=== PATIENT | male | born 1950 | race Caucasian/White ===

== ENCOUNTER → 2020-09-28 14:52 | Outpatient (CLI) | payer MEDICARE, SELFPAY ==
[2020-09-28 15:26] LABS: Hemoglobin A1C% w Est Avg Glu 6.6 % (4.0-6.0)
[2020-09-28 15:37] LABS: Alanine Aminotransferase 25 IU/L (<50); Albumin 4.2 g/dL (3.5-5.0); Albumin Globulin Ratio 1.4 (1.0-2.8); Alkaline Phosphatase 59 U/L (38-126); Aspartate Aminotransferase 27 IU/L (17-59); BUN Creatinine Ratio 16.2 (6-22); Bilirubin Total 0.4 mg/dL (0.2-1.3); Blood Urea Nitrogen 25 mg/dL (9-20); Calcium 9.9 mg/dL (8.4-10.2); Carbon Dioxide 28 mmol/L (22-32); Chloride 100 mmol/L (98-107); Cholesterol 223 mg/dL (140-199); Estimated Glomerular Filt Rate 44.8 mL/min (>60); Globulin 3.1 g/dL (1.7-4.1); Glucose 131 mg/dL (80-110); HDL Cholesterol 36 mg/dL (40-60); HEMOLYSIS < 15 (0-50); Potassium 4.5 mmol/L (3.4-5.1); Sodium 135 mmol/L (137-145); Total Protein 7.3 g/dL (6.3-8.2)
[2020-09-28 15:45] LABS: Triglycerides 626 mg/dL (35-150)
[2020-09-28 16:03] LABS: Prostate Specific Antigen 0.567 ng/mL (0.10-4.00)
[2020-09-28 16:47] LABS: TSH w/ Reflex to FT4 1.14 uIU/mL (0.47-4.68)
== END ==
PROVIDERS: PCP Family Medicine; Referring Provider Family Medicine; Visit Provider Family Medicine
DX: R73.9 Hyperglycemia, unspecified (principal); I10 Essential (primary) hypertension; N40.0 Benign prostatic hyperplasia without lower urinary tract symptoms; R53.83 Other fatigue
CPT/HCPCS: 36415; 80053; 80061; 83036; 84153; 84443

== ENCOUNTER → 2023-03-20 17:36 | Outpatient (CLI) | payer MEDICARE, SELFPAY ==
[2023-03-20 18:04] LABS: Add Manual Diff / Slide Review NO; Basophils Absolute Auto 0 /uL (0-100); Basophils Percent Auto 0.3 % (0-2); Eosinophils Absolute Auto 200 /uL (0-450); Eosinophils Percent Auto 2.9 % (2-4); Hematocrit 39.3 % (41-53); Hemoglobin 13.2 g/dL (13.5-17.5); Lymphocytes Absolute Auto 1500 /uL (1100-4500); Lymphocytes Percent Auto 20.9 % (25-40); Mean Corpuscular HGB Conc 33.5 % (30-36); Mean Corpuscular Hemoglobin 31.3 PG (26-34); Mean Corpuscular Volume 93.3 fL (80-100); Monocytes Absolute Auto 800 /uL (0-900); Monocytes Percent Auto 10.5 % (3-14); Neutrophils Absolute Auto 4700 /uL (1500-7000); Neutrophils Percent Auto 65.4 % (50-75); Platelet Count 247 X10^3/uL (150-400); Red Blood Cell Count 4.21 X10^6/uL (4.5-5.9); Red Cell Distribution Width 13.2 % (11.6-14.8); White Blood Cell Count 7.2 X10^3/uL (4.5-11.0)
[2023-03-20 18:14] LABS: Hemoglobin A1C% w Est Avg Glu 6.8 % (4.0-6.0)
[2023-03-20 18:22] LABS: Alanine Aminotransferase 35 IU/L (<50); Albumin 3.8 g/dL (3.5-5.0); Albumin Globulin Ratio 1.2 (1.0-2.8); Alkaline Phosphatase 63 U/L (38-126); Aspartate Aminotransferase 24 IU/L (17-59); BUN Creatinine Ratio 13.2 (6-22); Bilirubin Total 0.2 mg/dL (0.2-1.3); Blood Urea Nitrogen 35 mg/dL (9-20); Calcium 9.4 mg/dL (8.4-10.2); Carbon Dioxide 24 mmol/L (22-32); Chloride 105 mmol/L (98-107); Estimated Glomerular Filt Rate 25 mL/min (>60); Globulin 3.3 g/dL (1.7-4.1); Glucose 139 mg/dL (80-110); HEMOLYSIS < 15 (0-50); Potassium 4.8 mmol/L (3.4-5.1); Sodium 138 mmol/L (137-145); Total Protein 7.1 g/dL (6.3-8.2)
[2023-03-20 18:52] LABS: TSH w/ Reflex to FT4 0.88 uIU/mL (0.47-4.68)
== END ==
PROVIDERS: PCP Family Medicine; Referring Provider Family Medicine; Visit Provider Family Medicine
DX: E78.5 Hyperlipidemia, unspecified (principal); R73.9 Hyperglycemia, unspecified; N40.0 Benign prostatic hyperplasia without lower urinary tract symptoms; I10 Essential (primary) hypertension; M54.2 Cervicalgia; N28.9 Disorder of kidney and ureter, unspecified
CPT/HCPCS: 36415; 80053; 83036; 84443; 85025

== ENCOUNTER 2024-05-31 11:40 | Emergency (ER) | payer MEDICARE, SELFPAY ==
[2024-05-31] VITALS (14 sets, daily range): BP systolic 156–227; BP diastolic 72–115; PULSE 81–114; RESP 18–45; TEMP 36.7; O2SAT 93–96; BMI 37.5
--- NOTE | 2024-05-31 11:57 | DI.RAD.S_ITS ---
PROCEDURE: XR CHEST 1V INDICATIONS: Shortness of breath TECHNIQUE: One view of the chest was acquired. COMPARISON: None. FINDINGS: Surgical changes and devices: None. Lungs and pleura: Prominent interstitial markings in the mid and lower lung javier. Likely small bilateral pleural effusions. Mediastinum: Mediastinal contours appear normal. Heart size is normal. Bones and chest wall: No suspicious bony lesions. Overlying soft tissues appear unremarkable. IMPRESSION: Prominent interstitial markings in the mid and lower lung jvaier and possible small pleural effusions, correlate for volume overload. Dictated by: Sherwin Hester M.D. on 05/31/2024 at 12:13 Approved by: Sherwin Hester M.D. on 05/31/2024 at 12:17
--- NOTE | 2024-05-31 12:10 | ED_ITS ---
HPI - SOB/Dyspnea General Chief Complaint: Shortness of Breath/Dyspnea Stated Complaint: Shortness of breath Time Seen by Provider: 05/31/24 11:59 Source: patient Mode of arrival: Wheelchair Limitations: no limitations History of Present Illness HPI Narrative: 74-year-old male with 2 months duration of shortness of breath, increased the last week or 2, lower extremity edema chronic, recalls taking water pill medication 1 month ago that was short course, not chronic, not continue, no intolerance. No recent cough fevers or chills. No chest pain. Denies history of known kidney problems. Denies history of known liver problems. Denies history of known congestive heart failure problems. He has history of diabetes and hypertension Related Data Home Medications Medication Instructions Recorded Confirmed lisinopril 20 mg tablet 10 mg PO QID 03/20/23 Previous Rx's Medication Instructions Recorded amlodipine 2.5 mg tablet 2.5 mg PO BEDTIME #90 tabs 03/20/23 empagliflozin 25 mg tablet 25 mg PO DAILY #90 tabs 03/20/23 (Jardiance) hydroxyzine HCl 25 mg tablet 25 mg PO BID PRN anxiety #30 tabs 03/20/23 lisinopril 20 mg tablet 20 mg PO BID #180 tabs 03/20/23 lorazepam 0.5 mg tablet 0.5 mg PO BID PRN anxiety #30 tabs 12/12/23 Allergies Allergy/AdvReac Type Severity Reaction Status Date / Time gluten Allergy Mild congestion Verified 03/20/23 16:43 milk Allergy Mild congestion Verified 03/20/23 16:43 Review of Systems Review of Systems Narrative: See HPI Patient History Medical History (Updated 05/31/24 @ 16:43 by Maximo Moralez MD) Type 2 diabetes mellitus Erectile dysfunction Kidney disease Neck pain Hyperlipidemia BPH (benign prostatic hyperplasia) Fatigue Hyperglycemia Hypertension Social History Smoking Status: Former smoker (Quit 2009 ) Tobacco: How many years used: 10 alcohol intake: current substance use type: does not use Smoking Status: Former smoker (Quit 2009 ) alcohol intake frequency: other Substance Use Type: does not use Exam Narrative Exam Narrative: GENERAL: Well-developed patient, in mild distress. HEAD: Atraumatic. Normocephalic. EYES: Pupils equal round and reactive. Extraocular motions intact. No scleral icterus. No injection or drainage. ENT: Nose without bleeding, purulent drainage. Throat without erythema, tonsillar hypertrophy or exudate. Airway patent. NECK: Trachea midline. Non tender CARDIOVASCULAR: Regular rate and rhythm without murmurs, gallops, or rubs. RESPIRATORY: Clear to auscultation. Breath sounds equal bilaterally. No wheezes, rales, or rhonchi. GASTROINTESTINAL: Abdomen soft, obese/protuberant, non-tender, nondistended. EXTREMITIES: Bilateral lower extremity edema to ankles, 1+ scant, good DP pulses and cap refill toes BACK: Nontender without deformity or crepitance. No flank tenderness. NEURO: AOx3. Motor functions grossly nonfocal SKIN: No rash or erythema of visible areas Initial Vital Signs Initial Vital Signs: Vital Signs Temperature 98.0 F 05/31/24 11:51 Pulse Rate 114 H 05/31/24 11:51 Respiratory Rate 45 H 05/31/24 11:51 Blood Pressure 227/115 H 05/31/24 11:51 Pulse Oximetry 93 05/31/24 11:51 Oxygen Delivery Method Nasal Cannula 05/31/24 11:51 Oxygen Flow Rate 2 05/31/24 11:51 Course Orders Ordered: ED Orders 05/31/24 11:57 XR chest 1V Stat EKG-12 Lead Stat Measure peak expiratory flow ONCE RT Consult Eval and Treat NOW 05/31/24 12:35 Complete Blood Count AUTO DIFF Stat Comprehensive Metabolic Panel Stat Lactate (Lactic Acid) Stat NT-proBNP (BNP-Adult 18+) Stat Prothrombin Time INR Stat Troponin I Stat 05/31/24 12:45 Blood Culture Stat 05/31/24 13:20 CT chest abd pel wo con Stat Discontinued Medications Albuterol (Albuterol 2.5 Mg/3 Ml Neb (Adult)) 2.5 mg INH NOW ONE Stop: 05/31/24 13:24 Last Admin: 05/31/24 13:58 Dose: 2.5 mg Documented By: IGOR Doxycycline Hyclate (Doxycycline Hyclate 100 Mg Tablet) 100 mg PO NOW ONE Stop: 05/31/24 12:10 Last Admin: 05/31/24 13:02 Dose: 100 mg Documented By: YUE Ceftriaxone Sodium 1,000 mg/ (Sodium Chloride) 100 mls @ 200 mls/hr IV NOW ONE Stop: 05/31/24 12:10 Last Infusion: 05/31/24 14:12 Dose: Infused Documented By: Infusion: 05/31/24 13:30 Dose: 200 mls/hr Documented By: Infusion: 05/31/24 13:10 Dose: 0 mls/hr Documented By: Admin: 05/31/24 13:00 Dose: 200 mls/hr Documented By: YUE Labetalol HCl (Labetalol 20 Mg/4 Ml Syringe) 10 mg IV NOW ONE Stop: 05/31/24 12:09 Last Admin: 05/31/24 13:30 Dose: 10 mg Documented By: YUE Vital Signs Vital signs: Vital Signs - 8 hr 05/31/24 13:05 05/31/24 13:30 05/31/24 13:30 Pulse Rate 95 H 92 H 92 H Respiratory Rate 30 H 25 H Blood Pressure 179/102 H Pulse Oximetry 95 94 Oxygen Delivery Method Room Air 05/31/24 13:30 05/31/24 13:53 05/31/24 13:53 Pulse Rate 85 Respiratory Rate 25 H Blood Pressure 188/109 H 212/102 H Pulse Oximetry 94 Oxygen Delivery Method Room Air 05/31/24 13:58 05/31/24 14:00 05/31/24 14:00 Pulse Rate 87 85 Respiratory Rate 18 25 H Blood Pressure 184/102 H Pulse Oximetry 95 95 Oxygen Delivery Method Room Air 05/31/24 14:30 05/31/24 14:31 05/31/24 14:31 Pulse Rate 84 84 Respiratory Rate 28 H 23 Blood Pressure 180/101 H Pulse Oximetry 96 95 Oxygen Delivery Method 05/31/24 14:52 05/31/24 15:00 05/31/24 15:01 Pulse Rate 83 81 81 Respiratory Rate 26 H 22 Blood Pressure 180/101 H Pulse Oximetry 95 95 Oxygen Delivery Method Room Air 05/31/24 15:01 05/31/24 15:30 05/31/24 16:00 Pulse Rate 83 Respiratory Rate 25 H Blood Pressure 163/89 H 160/72 H Pulse Oximetry 94 94 Oxygen Delivery Method Room Air 05/31/24 17:08 Pulse Rate 84 Respiratory Rate 23 Blood Pressure 156/72 H Pulse Oximetry 94 Oxygen Delivery Method Room Air MDM - SOB/Dyspnea Lab Data Attestation: I reviewed the patient's lab results. Lab results narrative: White blood cell count 9100, hemoglobin 30.7, platelets adequate. Potassium 5.0, sodium 138, BUN 36 with creatinine 3.95, glucose 131. Previous creatinine 2.66 noted March 2023, previous creatinine 1.5 on August 2020 noted 05/31/24 12:35 05/31/24 12:35 Labs: Lab Results 05/31/24 Range/Units 12:35 WBC 9.1 (4.5-11.0) X10^3/uL RBC 4.44 L (4.5-5.9) X10^6/uL Hgb 13.7 (13.5-17.5) g/dL Hct 41.2 (41-53) % MCV 92.9 (80-100) fL MCH 30.8 (26-34) PG MCHC 33.2 (30-36) % RDW 14.0 (11.6-14.8) % Plt Count 300 (150-400) X10^3/uL Neut % (Auto) 75.3 H (50-75) % Lymph % (Auto) 13.1 L (25-40) % [place] % (Auto) 8.7 (3-14) % Eos % (Auto) 2.0 (2-4) % Baso % (Auto) 0.9 (0-2) % Neut # (Auto) 6900 (5230-9644) /uL Lymph # (Auto) 1200 (4338-1844) /uL [place] # (Auto) 800 (0-900) /uL Eos # (Auto) 200 (0-450) /uL Baso # (Auto) 100 (0-100) /uL PT 12.1 (9.4-12.5) SECONDS INR 1.1 (0.9-1.3) Sodium 138 (137-145) mmol/L Potassium 5.0 (3.4-5.1) mmol/L Chloride 107 (98-107) mmol/L Carbon Dioxide 22 (22-32) mmol/L BUN 36 H (9-20) mg/dL Creatinine 3.95 H (0.66-1.25) mg/dL Estimated GFR 15 L (>60) mL/min BUN/Creatinine Ratio 9.1 (6-22) Glucose 131 H (80-110) mg/dL Lactate 0.9 (0.7-2.1) mmol/L Calcium 9.0 (8.4-10.2) mg/dL Total Bilirubin 0.6 (0.2-1.3) mg/dL AST 31 (17-59) IU/L ALT 31 (<50) IU/L Alkaline Phosphatase 69 (38-126) U/L Troponin I 0.069 H (0.01-0.034) ng/mL NT-Pro-B Natriuret Pep 5590 H (<450) pg/mL Total Protein 7.8 (6.3-8.2) g/dL Albumin 4.4 (3.5-5.0) g/dL Globulin 3.4 (1.7-4.1) g/dL Albumin/Globulin Ratio 1.3 (1.0-2.8) ECG Data Attestation: I personally reviewed and interpreted this ECG as follows: Interpretation: Normal sinus rhythm with rate 85, no obvious ST segment elevation or depression changes. WI 164, QRS 94, QTC 459. MDM Narrative Medical decision making narrative: 74-year-old male with shortness of breath last couple of weeks, history of diabetes and hypertension, no known heart liver lung kidney failure, some degree of chronic lower extremity edema, prior course of Lasix a month ago short course not a chronic medication. Screening EKG without significant changes. Screening labs pending. Creatinine elevated 3.9 today, compared to previous comparison, was 2.66 in March 2023, 1.5 on August 2020. BNP 5500 noted. Troponin 0.[address] chest abdomen and pelvis without contrast performed. Impressions: ?No renal stone, ureteral stone, or hydronephrosis. Mild cardiomegaly, mild pericardial effusion, severe coronary artery calcifications. Small bilateral pleural effusions with mild bibasilar compressive atelectasis. Bibasilar bronchial wall thickening and bibasilar mild bronchiectasis, no pulmonary airspace consolidation. No acute abdominal process. Question ankylosing spondylitis. ? See radiology report Copy report given to patient with discussion of abnormal labs and imaging studies. No mention of any cirrhosis or ascites. No significant fluid overload although there is some small pleural effusions noted and mild cardiomegaly, in context of BNP elevation 5500 noted. Consider primary acute/chronic renal failure with subsequent fluid overload. Consider primary cardiogenic problem with hypoperfusion of the kidneys. Could be some combination or some other cause. Consider Nephrology consultation. We will attempt to obtain phone consultation, no rn concurrent review available here. Case discussed by phone with [facility] Dr. De Jesus, who is encouraged that patient does not seem to have hyperkalemia or oxygenation requirement or dyspnea, but concern that kidney function has worsened over time as above. She does not necessarily recommend the patient have outpatient treatment, but their practice seems to be full. She would offer consultation if patient wants to be transferred over to their facility for inpatient evaluation. Discussed again with patient/, they would prefer to go home now, do not want any further workup for now, they would like to pursue Nephrology and Cardiology consultations and further workup as an outpatient for now. We will hold any Lasix or any new medications now, as nephrology was reluctant to make any specific recommendation without in-person consultation at this time. They seemed to express understanding of the situation. Continue current medications for now. Copy of report given to patient. Discharge now per their request Discharge Plan Departure Patient Disposition: Home Clinical Impression: Shortness of breath, Renal insufficiency, Bilateral lower extremity edema, Coronary artery calcification seen on CT scan Activity Restrictions/Additional Instructions: Shortness of breath over 2 months duration, history of diabetes and high blood pressure, no known congestive heart failure or liver failure or kidney failure per report. Lower extremity edema to the ankle region, trial of diuretic water pill like medication about a month ago, but not a chronic or recent treatment. Screening blood work today showed kidney failure changes, creatinine 3.9 elevated comparison studies in 2022 and 2020. Your potassium level seemed to be okay for now. You were speaking to be in full sentences. CT chest abdomen and pelvis imaging done without contrast so would not hurt your kidneys, and showed some pleural effusion both sides, mild heart enlargement, calcifications of the heart coronary vessels, no mention of any ascites or cirrhosis of the liver or any acute abdominal process. Case was discussed with [facility], but she was reluctant to make any specific recommendations without any in-person consultation and further workup such as echocardiogram and perhaps other studies. She offered consultation for transfer, declined for now. You decided that you did not want to have any further workup for now here, wanted to go home. No new medications for now. Keep your chronic medications for now. Further consultation with Cardiology and/or Nephrology and/or other services as an outpatient for now, stating that you would pursue this with your regular primary care provider for now, with referrals as an outpatient for now. Follow up with your regular provider early this week, to coordinate consultations outlined above. Return earlier to this/nearest emergency department for any change worsening symptoms or any concerns prior Prescriptions: No Action lorazepam 0.5 mg tablet 0.5 mg PO BID PRN (Reason: anxiety) Qty: 30 1RF Rx Instructions: Use sparingly lisinopril 20 mg tablet 10 mg PO QID Rx Instructions: Take at bedtime lisinopril 20 mg tablet 20 mg PO BID Qty: 180 3RF amlodipine 2.5 mg tablet 2.5 mg PO BEDTIME Qty: 90 3RF hydroxyzine HCl 25 mg tablet 25 mg PO BID PRN (Reason: anxiety) Qty: 30 1RF Jardiance 25 mg tablet 25 mg PO DAILY Qty: 90 1RF Rx Instructions: Initially start at a half tablet a day for 4 days than advanced to 1 tablet per day. Referrals: Judson Harris DO [Primary Care Provider] - Stand Alone Forms: Patient Portal/API/Survey
[2024-05-31] MEDS: cefTRIAXone 1,000 MG in SODIUM CHLORIDE 0.9% 100 ML 200 MG IV (13:00)
[2024-05-31 13:01] LABS: Add Manual Diff / Slide Review NO; Basophils Absolute Auto 100 /uL (0-100); Basophils Percent Auto 0.9 % (0-2); Eosinophils Absolute Auto 200 /uL (0-450); Hematocrit 41.2 % (41-53); Hemoglobin 13.7 g/dL (13.5-17.5); INR 1.1 (0.9-1.3); Lymphocytes Absolute Auto 1200 /uL (1100-4500); Lymphocytes Percent Auto 13.1 % (25-40); Mean Corpuscular HGB Conc 33.2 % (30-36); Mean Corpuscular Hemoglobin 30.8 PG (26-34); Mean Corpuscular Volume 92.9 fL (80-100); Monocytes Absolute Auto 800 /uL (0-900); Monocytes Percent Auto 8.7 % (3-14); Neutrophils Absolute Auto 6900 /uL (1500-7000); Neutrophils Percent Auto 75.3 % (50-75); Platelet Count 300 X10^3/uL (150-400); Prothrombin Time 12.1 SECONDS (9.4-12.5); Red Blood Cell Count 4.44 X10^6/uL (4.5-5.9); White Blood Cell Count 9.1 X10^3/uL (4.5-11.0)
[2024-05-31] MEDS: DOXYCYCLINE HYCLATE 100 MG TABLET PO (13:02)
[2024-05-31 13:05] LABS: Alanine Aminotransferase 31 IU/L (<50); Albumin 4.4 g/dL (3.5-5.0); Albumin Globulin Ratio 1.3 (1.0-2.8); Alkaline Phosphatase 69 U/L (38-126); Aspartate Aminotransferase 31 IU/L (17-59); BUN Creatinine Ratio 9.1 (6-22); Bilirubin Total 0.6 mg/dL (0.2-1.3); Blood Urea Nitrogen 36 mg/dL (9-20); Carbon Dioxide 22 mmol/L (22-32); Chloride 107 mmol/L (98-107); Estimated Glomerular Filt Rate 15 mL/min (>60); Globulin 3.4 g/dL (1.7-4.1); Glucose 131 mg/dL (80-110); HEMOLYSIS < 15 (0-50); Sodium 138 mmol/L (137-145); Total Protein 7.8 g/dL (6.3-8.2)
[2024-05-31 13:06] LABS: Lactate (Lactic Acid) 0.9 mmol/L (0.7-2.1)
--- NOTE | 2024-05-31 13:13 | PC.NURSE ---
In the department for SOB sent from the [facility] where he was 87% on RA. Patient presents tachycardic and tachypenic with abdominal muscle use. Has noticed weight gain in the past couple months and reports that he did a trial of diuretics that fixed the swelling
--- NOTE | 2024-05-31 13:16 | PC.NURSE ---
1245- patient refused resp panel stating that he has read too much and that he will do any test that tests for COVID
[2024-05-31 13:17] LABS: NT-proBNP (BNP-Adult 18+) 5590 pg/mL (<450); Troponin I 0.069 ng/mL (0.01-0.034)
--- NOTE | 2024-05-31 13:20 | DI.CT.S_ITS ---
PROCEDURE: CT CHEST ABD PEL WO CON INDICATIONS: dyspnea, creat 3.9 unclear cause TECHNIQUE: After the administration of oral contrast, 5 mm thick sections acquired from the lung apices to the symphysis pubis. 5 mm thick coronal and sagittal reformats acquired, with additional 7 mm coronal MIP reformats through the lungs. For radiation dose reduction, the following was used: automated exposure control, adjustment of mA and/or kV according to patient size. COMPARISON: None. FINDINGS: Image quality: Diagnostic. CHEST: Lower Neck: No enlarged lymph nodes. Thyroid: No thyroid nodules which require sonographic follow up, per consensus guidelines. Axillae: No enlarged lymph nodes. Chest Wall: Unremarkable. Bones: Unremarkable. Lungs and Pleura: Small bilateral pleural effusions with compressive bibasilar atelectasis, right lytic limb mild. Bibasilar bronchial wall thickening and mild bronchiectasis. No focal airspace consolidation. Heart: Mild cardiomegaly. Mild pericardial effusion. Severe coronary artery calcifications. Thoracic Vessels: The aorta and pulmonary arteries demonstrate normal size. Mediastinum and Alana: No enlarged lymph nodes. Esophagus: No wall thickening. No hiatal hernia. ABDOMEN: Liver: No solid mass. Gallbladder: No radiopaque gallstones or wall thickening. Biliary ducts: No biliary dilation. Pancreas: No ductal dilation. Spleen: Size is within normal limits. Adrenal Glands: No adrenal nodules. Kidneys and Ureters: No hydronephrosis. No solid mass. No complex renal cystic lesion which requires follow up. Stomach and Bowel: Normal colonic caliber, without significant wall thickening. Diverticulosis without evidence of acute diverticulitis. Peritoneum: No abnormal intraperitoneal fluid. No free air. Ventral Wall: No hernia. Abdominal Nodes: No retroperitoneal or mesenteric adenopathy by size criteria. Vessels: Aorta and inferior vena cava are normal in size. PELVIS: Pelvic Organs: Unremarkable. Bladder: Unremarkable. Pelvic Nodes: No enlarged lymph nodes. Miscellaneous: No inguinal hernias are seen. Bones: No aggressive osseous abnormality. Question ankylosing spondylitis. Both SI joints are fused. There is apparent ankylosis of the thoracic region but not the lumbar region. IMPRESSION: 1. No renal stone, ureteral stone, or hydronephrosis. 2. Mild cardiomegaly, mild pericardial effusion, severe coronary artery calcifications. 3. Small bilateral pleural effusions with mild bibasilar compressive atelectasis. 4. Bibasilar bronchial wall thickening and mild bibasilar bronchiectasis. 5. No pulmonary airspace consolidation. 6. No acute abdominal process. 7. Question ankylosing spondylitis. Dictated by: Gwyn Leung M.D. on 05/31/2024 at 14:28 Approved by: Gwyn Leung M.D. on 05/31/2024 at 14:47
[2024-05-31] MEDS: LABETALOL 20 MG/4 ML SYRINGE 10 MG IV (13:30)
--- NOTE | 2024-05-31 13:40 | PC.NURSE ---
1330-right forearm iv infiltrated and had to start US IV, labetolol was given at 1330
[2024-05-31] MEDS: ALBUTEROL 2.5 MG/3 ML NEB (ADULT) INH (13:58)
--- NOTE | 2024-05-31 14:16 | EKG_ITS ---
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
== END 2024-05-31 16:54 | disposition home or self-care (01) ==
PROVIDERS: Emergency Provider Emergency Medicine; PCP Family Medicine
DX: N28.9 Disorder of kidney and ureter, unspecified (principal); R06.02 Shortness of breath; R60.0 Localized edema; I25.10 Atherosclerotic heart disease of native coronary artery without angina pectoris
CPT/HCPCS: 71045; 71250; 74176; 80053; 83605; 83880; 84484; 85025; 85610; 87040; 93005; 94640; 96365; 96375; 99284; J0696; J7613

== ENCOUNTER → 2024-06-07 12:17 | Outpatient (CLI) | payer MEDICARE, SELFPAY ==
[2024-06-07 14:35] LABS: Alanine Aminotransferase 21 IU/L (<50); Albumin 3.7 g/dL (3.5-5.0); Albumin Globulin Ratio 1.4 (1.0-2.8); Alkaline Phosphatase 69 U/L (38-126); Aspartate Aminotransferase 19 IU/L (17-59); BUN Creatinine Ratio 14.1 (6-22); Bilirubin Total 0.5 mg/dL (0.2-1.3); Blood Urea Nitrogen 64 mg/dL (9-20); Calcium 8.9 mg/dL (8.4-10.2); Carbon Dioxide 21 mmol/L (22-32); Chloride 105 mmol/L (98-107); Cholesterol 177 mg/dL (140-199); Estimated Glomerular Filt Rate 13 mL/min (>60); Globulin 2.6 g/dL (1.7-4.1); Glucose 112 mg/dL (80-110); HDL Cholesterol 35 mg/dL (40-60); HEMOLYSIS < 15 (0-50); LDL Cholesterol Calculated 82 mg/dL (<100); Sodium 136 mmol/L (137-145); Total Protein 6.3 g/dL (6.3-8.2); Triglycerides 299 mg/dL (35-150)
[2024-06-07 15:15] LABS: Hemoglobin A1C% w Est Avg Glu 6.8 % (4.0-6.0)
[2024-06-07 18:49] LABS: Creatinine Urine Random 52.44 mg/dL
[2024-06-07 20:23] LABS: Microalbumin Urine Random > 114.0 mg/dL (0-1.6)
== END ==
PROVIDERS: PCP Family Medicine; Referring Provider Family Medicine; Visit Provider Family Medicine
DX: E11.9 Type 2 diabetes mellitus without complications (principal); E78.5 Hyperlipidemia, unspecified; N40.0 Benign prostatic hyperplasia without lower urinary tract symptoms; I10 Essential (primary) hypertension
CPT/HCPCS: 80053; 80061; 82043; 82570; 83036

== ENCOUNTER → 2024-06-21 14:49 | Outpatient (CLI) | payer MEDICARE, SELFPAY ==
[2024-06-21 17:42] LABS: Alanine Aminotransferase 19 IU/L (<50); Albumin 3.8 g/dL (3.5-5.0); Albumin Globulin Ratio 1.3 (1.0-2.8); Alkaline Phosphatase 69 U/L (38-126); Aspartate Aminotransferase 23 IU/L (17-59); BUN Creatinine Ratio 9.8 (6-22); Bilirubin Total 0.4 mg/dL (0.2-1.3); Blood Urea Nitrogen 46 mg/dL (9-20); Calcium 8.7 mg/dL (8.4-10.2); Carbon Dioxide 20 mmol/L (22-32); Chloride 105 mmol/L (98-107); Estimated Glomerular Filt Rate 12 mL/min (>60); Glucose 96 mg/dL (80-110); HEMOLYSIS < 15 (0-50); Phosphorous 4.7 mg/dL (2.3-3.7); Sodium 134 mmol/L (137-145); Total Protein 6.8 g/dL (6.3-8.2)
== END ==
PROVIDERS: PCP Family Medicine; Referring Provider Family Medicine; Visit Provider Family Medicine
DX: N18.9 Chronic kidney disease, unspecified (principal); I50.9 Heart failure, unspecified; E11.9 Type 2 diabetes mellitus without complications
CPT/HCPCS: 80053; 83970; 84100

== ENCOUNTER → 2024-09-03 17:07 | Outpatient (CLI) | payer MEDICARE, SELFPAY ==
[2024-09-03 17:41] LABS: Add Manual Diff / Slide Review NO; Basophils Absolute Auto 100 /uL (0-100); Basophils Percent Auto 1.1 % (0-2); Eosinophils Absolute Auto 300 /uL (0-450); Hematocrit 33.1 % (41-53); Hemoglobin 11.9 g/dL (13.5-17.5); Lymphocytes Absolute Auto 1500 /uL (1100-4500); Lymphocytes Percent Auto 19.4 % (25-40); Mean Corpuscular HGB Conc 35.9 % (30-36); Mean Corpuscular Hemoglobin 32.6 PG (26-34); Mean Corpuscular Volume 90.9 fL (80-100); Monocytes Absolute Auto 700 /uL (0-900); Monocytes Percent Auto 9.7 % (3-14); Neutrophils Absolute Auto 5000 /uL (1500-7000); Neutrophils Percent Auto 65.8 % (50-75); Platelet Count 315 X10^3/uL (150-400); Red Blood Cell Count 3.64 X10^6/uL (4.5-5.9); Red Cell Distribution Width 14.2 % (11.6-14.8); White Blood Cell Count 7.6 X10^3/uL (4.5-11.0)
[2024-09-03 17:49] LABS: Hemoglobin A1C% w Est Avg Glu 6.1 % (4.0-6.0)
[2024-09-03 18:00] LABS: Alanine Aminotransferase 20 IU/L (<50); Albumin 4.1 g/dL (3.5-5.0); Albumin Globulin Ratio 1.4 (1.0-2.8); Alkaline Phosphatase 74 U/L (38-126); Aspartate Aminotransferase 26 IU/L (17-59); BUN Creatinine Ratio 11.4 (6-22); Bilirubin Total 0.3 mg/dL (0.2-1.3); Blood Urea Nitrogen 54 mg/dL (9-20); Calcium 8.6 mg/dL (8.4-10.2); Carbon Dioxide 20 mmol/L (22-32); Chloride 104 mmol/L (98-107); Estimated Glomerular Filt Rate 12 mL/min (>60); Glucose 105 mg/dL (80-110); HEMOLYSIS 26 (0-50); Potassium 4.7 mmol/L (3.4-5.1); Sodium 137 mmol/L (137-145); Total Protein 7.1 g/dL (6.3-8.2)
[2024-09-03 18:05] LABS: NT-proBNP (BNP-Adult 18+) 3360 pg/mL (<450)
[2024-09-03 18:26] LABS: TSH w/ Reflex to FT4 1.14 uIU/mL (0.47-4.68)
== END ==
LOC: LAB 17:08
PROVIDERS: PCP Family Medicine; Referring Provider Family Medicine; Visit Provider Family Medicine
DX: E11.9 Type 2 diabetes mellitus without complications (principal); E78.5 Hyperlipidemia, unspecified; N40.0 Benign prostatic hyperplasia without lower urinary tract symptoms; I10 Essential (primary) hypertension
CPT/HCPCS: 36415; 80053; 83036; 83880; 84443; 85025

== ENCOUNTER → 2024-10-04 14:53 | Outpatient (CLI) | payer MEDICARE, SELFPAY ==
--- NOTE | 2024-10-04 14:55 | DI.ECHO.S_ITS ---
[facility] : : [id number] : [place] : : [id number] : : Phone: [phone] Echocardiogram Report + + :Name: HÉCTOR HERNANDEZ Study Date: 10/04/2024 Height: 67 in : :[facility] ReadingLocation: Weight: 230 lb : : Gender: Male BSA: 2.1 m2 : :: 1950 Age: 74 yrs BP: 153/83 mmHg: :Reason For Study: CONGESTIVE HEART FAILURE : :Ordering Physician: GERARDO, : :SHAD Performed By: Mitch Nunes : :Referring: SHAD CARRILLO : + + Interpretation Summary Left ventricular wall thickness is mildly increased. The ejection fraction is estimated to be 50-55%. Grade II diastolic dysfunction. The left atrium is moderately dilated. The right ventricle is normal in size and function. The right atrium is moderately dilated. There is mild mitral regurgitation. There is mild to moderate aortic stenosis. Pulmonary artery pressures cannot be estimated because of the lack of a measurable TR jet velocity but the IVC suggests a CVP of around 3 mmHg. The ascending aorta is mildly enlarged. Compared to the prior study 06/02/2024, no major change. Procedure: A two-dimensional transthoracic echocardiogram with color flow and Doppler was performed. The study quality was technically good. Comparison is made with the echocardiogram of . The patient was in normal sinus rhythm during the exam. Left Ventricle: The left ventricle is normal in size. Left ventricular wall thickness is mildly increased. There is no ventricular septal defect visualized. The ejection fraction is estimated to be 50-55%. Diastolic parameters suggest a pseudonormalization pattern, consistent with probable elevated filling pressures. Right Ventricle: The right ventricle is normal in size and function. Atria: The left atrium is moderately dilated. The right atrium is moderately dilated. There is no Doppler evidence for an interatrial shunt. Mitral Valve: There is mild to moderate mitral annular calcification. The mitral valve leaflets are mildly calcified. There is mild mitral regurgitation. Aortic Valve: The aortic valve is trileaflet. The aortic valve is severely calcified. There is mild to moderate aortic stenosis. The peak aortic velocity is 2.6 m/sec. The aortic valve mean gradient is 17.2 mmHg. The dimensionless index is 0.37. The stroke-volume index is 36 mL/mA?. The calculated aortic valve area is 1.3 cm2. No aortic regurgitation is present. Tricuspid Valve: The tricuspid valve leaflets are thin and pliable. There is a trace or physiologic amount of tricuspid regurgitation. Pulmonary artery pressures cannot be estimated because of the lack of a measurable TR jet velocity but the IVC suggests a CVP of around 3 mmHg. Pulmonic Valve: The pulmonic valve leaflets are thin and pliable; valve motion is normal. There is no pulmonic valvular regurgitation. Great Vessels: The aortic root is normal size. The ascending aorta is mildly enlarged. The pulmonary artery is normal size. The IVC is of normal diameter and collapses greater than 50% with a sniff. This suggests a low right atrial pressure of 3 mm Hg. Pericardium/ Pleura There is no pericardial effusion. There is no pleural effusion. MMode/2D Measurements & Calculations LVIDd: 4.9 cm LVOT diam: 2.1 cm LVIDs: 3.7 cm Ao root diam: 3.5 cm FS: 25.5 % asc Aorta Diam: 3.7 cm EPSS: 1.2 cm IVSd: 1.2 cm LVPWd: 1.3 cm LV gaytan. diameter/BSA (cm/m^2): 2.3 LV sys. diameter/BSA (cm/m^2): 1.7 LA A2 area: 27.2 cm2 RA long axis: 5.7 cm LA A4 area: 28.5 cm2 RA area: 21.5 cm2 LA length (vol): 6.8 cm RA vol: 69.2 ml LA vol: 97.0 ml RA : 32.3 ml/m2 LA vol index: 45.2 ml/m2 IVC diam: 1.5 cm RVD1 (basal): 3.4 cm RVD2 (mid): 3.0 cm TAPSE: 2.7 cm Doppler Measurements & Calculations Ao V2 max: 259.0 cm/sec LVOT Max Bertin: 89.1 cm/sec Ao V2 mean: 202.1 cm/sec LV V1 max P.2 mmHg Ao max P.8 mmHg LV V1 VTI: 22.2 cm Ao mean P.2 mmHg IZABELA(I,D): 1.4 cm2 Ao V2 VTI: 56.9 cm IZABELA(V,D): 1.2 cm2 sev ratio: 0.39 IZABELA indexed to BSA (cm^2/m^2): 0.63 MV E max bertin: 119.8 cm/sec PA V2 max: 56.2 cm/sec MV A max bertin: 117.9 cm/sec PA V2 mean: 39.8 cm/sec MV E/A: 1.0 PA mean P.70 mmHg Med Peak E' Bertin: 4.2 cm/sec PA pr(Accel): 46.5 mmHg E/E' med: 28.6 Lat Peak E' Bertin: 4.1 cm/sec E/E' lat: 28.9 E/e' average: 28.7 MV dec time: 0.21 sec SV(LVOT): 77.4 ml Reading Physician:05:02 PM
== END ==
PROVIDERS: PCP Family Medicine; Referring Provider Family Medicine; Visit Provider Family Medicine
DX: I08.0 Rheumatic disorders of both mitral and aortic valves (principal); I50.9 Heart failure, unspecified
CPT/HCPCS: 93306